=== PATIENT | male | born 1990 | race Caucasian/White ===

== ENCOUNTER 2017-02-19 10:39 | Emergency (ER) | payer MEDICAID ==
[~2017-02-19] VITALS: Ht 182.9 cm; Wt 77.2 kg
[2017-02-19] MEDS ORDERED: SODIUM CHLORIDE 0.9% 1,000ML IVBOLUS ONE (11:30)
[2017-02-19] MEDS ORDERED: ONDANSETRON 2MG/ML, 2ML IVPush ONE (11:30)
[2017-02-19] MEDS ORDERED: SODIUM CHLORIDE FLUSH 10ML SYR IVF ONE (11:30)
[2017-02-19] MEDS ORDERED: ONDANSETRON 2MG/ML, 2ML ONE (11:46)
[2017-02-19] MEDS ORDERED: HYDROmorphone 1 MG/ML, 1ML ONE ×2 (11:46→13:22)
[2017-02-19] MEDS: HYDROmorphone 1 MG/ML, 1ML IVPush PRN ×2 (11:53→13:24)
[2017-02-19 11:54] LABS: HEMATOCRIT 35.8 % (39.2-51.8); HEMOGLOBIN 12.1 g/dL (13.7-18.0)
[2017-02-19 12:04] LABS: BLOOD UREA NITROGEN 11 mg/dL (7-18)
[2017-02-19 14:54] VITALS: BP 135/88
== END 2017-02-19 14:58 | disposition home or self-care (01) ==
LOC: ED 12:58
DX: S93.401A Sprain of unspecified ligament of right ankle, initial encounter (principal); S93.402A Sprain of unspecified ligament of left ankle, initial encounter; F17.200 Nicotine dependence, unspecified, uncomplicated; X50.1XXA Overexertion from prolonged static or awkward postures, initial encounter; Y93.89 Activity, other specified; Y92.89 Other specified places as the place of occurrence of the external cause; Y99.8 Other external cause status
CPT/HCPCS: 29515; 36415; 73610; 80048; 82040; 85025; 96361; 96374; 96375; 96376; 99285; J1170; J2405; J7030